=== PATIENT | female | born 1985 | race Caucasian/White ===

== ENCOUNTER → 2019-09-27 | Outpatient (REF) | payer OTHER, MEDICAID | LOC: M LAB REF 19:22 | PROVIDERS: ATTEND Obstetrics & Gynecology | DX: Z12.4 Encounter for screening for malignant neoplasm of cervix (principal); R87.613 High grade squamous intraepithelial lesion on cytologic smear of cervix (HGSIL) ==

== ENCOUNTER → 2019-12-08 | Outpatient (REF) | payer OTHER, MEDICAID | LOC: M SFHCWAGY 10:42 | PROVIDERS: ATTEND Obstetrics & Gynecology | DX: R87.613 High grade squamous intraepithelial lesion on cytologic smear of cervix (HGSIL) (principal) ==

== ENCOUNTER → 2020-01-07 | Outpatient (REF) | payer OTHER, MEDICAID | LOC: M SFHCWAGY 16:59 | PROVIDERS: ATTEND Obstetrics & Gynecology | DX: R87.613 High grade squamous intraepithelial lesion on cytologic smear of cervix (HGSIL) (principal) ==